=== PATIENT | male | born 1960 | race Caucasian/White ===

== ENCOUNTER 2018-09-03 18:55 | Emergency (ER) | payer MEDICARE ==
[~2018-09-03] VITALS: Ht 182.9 cm; Wt 83.0 kg
[~2018-09-03 18:55] MED LIST: ABILIFY5 MG PO; ADDERALL 20 MG20 MG PO; AMBIEN10 MG PO; AMIODARONE HCL200 MG PO; COUMADIN5 MG PO; DEPAKOTE500 MG PO; KLONOPIN1 MG PO; METOPROLOL SUCC25 MG PO; NORCO 10MG-325MG1 EA PO; REMERON15 M1 PO; SPIRIVA18 MCG INH; Z REMERON PO; Z.0.AMIODARONE HCL20 PO; Z.0.COUMADIN2 MG PO; [UNRECOGNIZED DRUG - CODE] PO
--- OUTSIDE RECORDS SUMMARY | 2018-09-03 18:58 | XMS REPORT ---
Author Author [facility] Address Unknown Phone Unavailable Care Team Providers Care [employer] Name Role Phone Reagan BARRETO Unavailable Unavailable Problems This patient has no known problems. Allergies, Adverse Reactions, Alerts This patient has no known allergies or adverse reactions. Medications This patient has no known medications. Results Test Description Test Time Test Comments Text Results Atomic Results Result Comments CHEST SINGLE (PORTABLE) [place] [address] Patient Name: RANDY CADET MR #: [id number] : 1960 Age/Sex: 56/M Req #: [id number] [facility] Physician: Ordered by: OSWALDO BARRETO MD Report #: [id number] Location: ER Room/Bed: Procedure: [id number] DX/CHEST SINGLE (PORTABLE) Exam Date: 02/05/17 Exam Time: 1639 REPORT STATUS: Signed EXAMINATION: Chest, CHEST SINGLE (PORTABLE) INDICATION: Chest pain COMPARISON: None FINDINGS: LINES: None. Heart: Normal cardiac silhouette. Aortic valve prosthesis. Vascular: The pulmonary vasculature is within normal limits. Atherosclerotic calcifications of the aortic arch. Mediastinum: No mediastinal, hilar, or axillary mass or lymphadenopathy. Lungs: No parenchymal mass. No focal consolidation. Pleura: No pleural effusion. No pneumothorax. Bones: No acute osseous abnormality. Degenerative changes of the thoracic spine. Median sternotomy wires. Soft tissues: Normal. Impression: No acute radiographic abnormality. Signed by: Dr. Gladys Braden M.D. on 02/05/2017 5:04 PM Dictated By: GLADYS BRADEN MD 03 Transcribed By: LORRIE on 02/05/171703 COPY TO: OSWALDO BARRETO MD
[2018-09-03 19:42] LABS: BASOPHILS % 0.2 % (0.0-1.0); EOSINOPHILS # (AUTO) 0.2 (0.0-0.4); EOSINOPHILS % 2.1 % (0.0-6.0); HEMATOCRIT 41.7 % (38.2-49.6); HEMOGLOBIN 13.8 g/dL (14.0-18.0); LYMPHOCYTES # (AUTO) 1.3 (1.0-3.2); LYMPHOCYTES % 13.8 % (18.0-39.1); MEAN CORPUSCULAR HEMOGLOBIN 29.7 pg (28-32); MEAN CORPUSCULAR HGB CONC 33.1 g/dL (31-35); MEAN CORPUSCULAR VOLUME 89.9 fL (81-99); MONOCYTES # (AUTO) 1.1 (0.2-0.8); MONOCYTES % 12.5 % (4.4-11.3); NEUTROPHILS # (AUTO) 6.4 (2.1-6.9); NEUTROPHILS % 70.7 % (38.7-80.0); PLATELET COUNT 233 x10e3/uL (140-360); RED BLOOD COUNT 4.64 x10e6/uL (4.3-5.7); RED CELL DISTRIBUTION WIDTH 15.8 % (11.7-14.4)
[2018-09-03 19:46] LABS: INR 1.6; PROTHROMBIN TIME 19.7 seconds (11.9-14.5)
[2018-09-03 19:48] LABS: PARTIAL THROMBOPLASTIN TIME 53.5 seconds (23.8-35.5)
[2018-09-03 19:57] LABS: ALANINE AMINOTRANSFERASE 120 IU/L (0-55); ALBUMIN 3.6 g/dL (3.5-5.0); ALBUMIN/GLOBULIN RATIO 1.2 (0.8-2.0); ALKALINE PHOSPHATASE 88 IU/L (40-150); ANION GAP 13.4 mmol/L (8-16); BLOOD UREA NITROGEN 19 mg/dL (7-26); BUN/CREATININE RATIO 22 (6-25); CALCIUM 9.6 mg/dL (8.4-10.2); CARBON DIOXIDE 27 mmol/L (22-29); CHLORIDE 100 mmol/L (98-107); CREATINE KINASE 77 IU/L (30-200); CREATININE, SERUM 0.87 mg/dL (0.72-1.25); EST GLOMERULAR FILTRATION RATE > 60 ML/MIN (60-); GLUCOSE 98 mg/dL (74-118); POTASSIUM 4.4 mmol/L (3.5-5.1); SODIUM 136 mmol/L (136-145)
[2018-09-03 20:24] LABS: B-TYPE NATRIURETIC PEPTIDE2 90.7 pg/mL (0-100)
--- NOTE | 2018-09-03 21:35 | NUR ---
TRANSFER INITIATED TO [facility]
[2018-09-03 21:45] LABS: BILIRUBIN,URINE NEGATIVE (NEGATIVE); CLARITY,URINE CLEAR (CLEAR); COLOR,URINE YELLOW (YELLOW); KETONES,URINE NEGATIVE (NEGATIVE); LEUKOCYTE ESTERASE ,URINE NEGATIVE (NEGATIVE); NITRITE,URINE NEGATIVE (NEGATIVE); PROTEIN,URINE DIPSTICK NEGATIVE (NEGATIVE); URINE UROBILINOGEN 0.2 mg/dL (0.2 - 1)
[2018-09-03 21:54] LABS: BACTERIA,URINE RARE /HPF; RBC,URINE 0-5 /HPF (0-5); WBC,URINE (MAN) 0-5 /HPF (0-5)
--- NOTE | 2018-09-03 21:58 | Diagnostic Imaging Report ---
Examination: Cervical and Intracranial CT Angiogram with Contrast History: Right facial numbness and pain; right sided weakness.. Comparison studies: None Technique: Axial images were obtained from the thoracic inlet. Coronal and sagittal images reconstructed from the axial data. Intravenous contrast: 100 mL of Isovue 370. Degree of stenosis at the carotid bulbs, if present, will be calculated using NASCET criteria where the smallest diameter at the location of stenosis is compared to the diameter of the more distal non-diseased vessel lumen. Computer generated maximum intensity projection and 3D images of the cervical and intracranial anterior and posterior circulations were performed on a separate workstation. Dose modulation, iterative reconstruction, and/or weight based adjustment of the mA/kV was utilized to reduce the radiation dose to as low as reasonably achievable. Findings: CTA neck: Aortic arch and major vessels: Patent. Nonstenotic atherosclerotic calcification. Common carotid arteries: Patent. Nonstenotic atherosclerotic calcification of the distal left common carotid. Cervical carotid bifurcations: Right: Patent. Left :Patent. Internal carotid arteries: Right: Patent. Nonstenotic atherosclerotic calcification of the proximal cervical segment. Left: Patent. Nonstenotic atherosclerotic calcification of the proximal cervical segment. Distal cervical loop. Vertebral arteries: Patent. CTA head: Internal carotid arteries: Patent. Nonstenotic atherosclerotic calcification of the bilateral cavernous and right supraclinoid segments. Anterior cerebral arteries: Patent A1 and A2 segments. Middle cerebral arteries: Patent M1 and M2 segments. Posterior cerebral arteries: Patent P1 and P2 segments. Vertebro-basilar system: Patent. Anatomical variants: Anterior communicating artery :Present Posterior communicating arteries: Patent on the right. Absent on the left. Vertebral arteries: Codominant. IMPRESSION: 1. No intracranial or cervical arterial stenosis or occlusion or vascular malformation. 2. Nonstenotic atherosclerotic calcification, as above. Signed by: Dr. Carolina Rosa M.D. on 09/03/2018 9:55 PM
[2018-09-03 23:08] VITALS: BP 104/67
[2018-09-04] MEDS ORDERED: SODIUM CHLORIDE 0.9% 100 ML 100 ML ONE (05:32)
[2018-09-04] MEDS ORDERED: IOPAMIDOL 370 MG/ML 200 ML INFUS..BTL INJ ONE (05:33)
== END 2018-09-03 23:18 | disposition short-term general hospital (02) ==
LOC: ER 18:55
DX: R53.1 Weakness (principal); H57.11 Ocular pain, right eye; H34.11 Central retinal artery occlusion, right eye; F17.210 Nicotine dependence, cigarettes, uncomplicated
CPT/HCPCS: 36415; 70496; 70498; 80053; 81001; 82550; 82553; 83605; 83880; 84484; 85025; 85610; 85730; 99284

== ENCOUNTER → 2020-05-22 | Day surgery (SDC) | payer MEDICARE ==
[~2020-05-22] MED LIST changes: +ALBUTEROL0.63 MG/3 INH; +ALLERGY PILL PO; +CARVEDILOL3.125 MG PO; +GABAPENTIN300 MG PO; +LIDOCAINE HCL 2% LOCAL INJ 5 ML SDV VIAL INJ ONE; +LISINOPRIL10 MG PO; +LOVENOX SC; +NAPROXEN250 MG PO; +PROPOFOL IV EMULSION 10 MG/ML 20 ML VIAL ONE; +TYLENOL EXTRA500 MG PO; +WARFARIN SODIUM3 MG PO
[2020-05-22 09:10] VITALS: BP 121/56
== END | disposition home or self-care (01) ==
LOC: OR 06:36
PROVIDERS: ATTEND Internal Medicine Gastroenterology
DX: Z12.11 Encounter for screening for malignant neoplasm of colon (principal); K64.8 Other hemorrhoids; J44.9 Chronic obstructive pulmonary disease, unspecified; I11.0 Hypertensive heart disease with heart failure; I50.22 Chronic systolic (congestive) heart failure; E78.5 Hyperlipidemia, unspecified; I65.21 Occlusion and stenosis of right carotid artery; F90.9 Attention-deficit hyperactivity disorder, unspecified type; M45.9 Ankylosing spondylitis of unspecified sites in spine; F41.9 Anxiety disorder, unspecified; F17.210 Nicotine dependence, cigarettes, uncomplicated; Z88.8 Allergy status to other drugs, medicaments and biological substances; Z88.6 Allergy status to analgesic agent; Z01.812 Encounter for preprocedural laboratory examination; Z20.822 Contact with and (suspected) exposure to COVID-19; Z79.01 Long term (current) use of anticoagulants; Z79.02 Long term (current) use of antithrombotics/antiplatelets; Z86.11 Personal history of tuberculosis; Z95.2 Presence of prosthetic heart valve
CPT/HCPCS: G0121; J2001; J2704; U0002; 45378